=== PATIENT | female | born 1945 | race Caucasian/White ===

== ENCOUNTER 2017-06-29 09:27 | Day surgery (SDC) | payer MEDICARE, OTHER ==
[2017-06-28 15:17] LABS: BASOPHILS % (AUTO) 0.7 % (0-1); EOSINOPHILS # (AUTO) 0.2 X10'3 (0-0.9); EOSINOPHILS % (AUTO) 3.5 % (0-6); HEMATOCRIT 38.5 % (35.0-45.0); HEMOGLOBIN 13.1 g/dl (12.0-16.0); LYMPHOCYTES # (AUTO) 1.4 X10'3 (1.1-4.8); MEAN CORPUSCULAR HEMOGLOBIN 31.2 PG (27.0-31.0); MEAN CORPUSCULAR HGB CONC 34.2 % (33.0-36.5); MEAN CORPUSCULAR VOLUME 91.2 FL (78-98); MEAN PLATELET VOLUME 8.9 FL (7.4-10.4); MONOCYTES # (AUTO) 0.4 X10'3 (0-0.9); MONOCYTES % (AUTO) 7.4 % (2-12); NEUTROPHILS # (AUTO) 3.9 X10'3 (1.8-7.7); NEUTROPHILS % (AUTO) 64.4 % (42-75); PLATELET COUNT 190 X10'3 (140-440); RED BLOOD COUNT 4.22 X10'6 (4.20-5.60); RED CELL DISTRIBUTION WIDTH 14.3 % (11.5-14.5)
[2017-06-28 15:26] LABS: INR 1.1 INR; PARTIAL THROMBOPLASTIN TIME 27 SECONDS (22-32)
[2017-06-28 15:32] LABS: ALBUMIN 3.6 G/DL (3.4-5.0); ANION GAP 5 (8-16); BLOOD UREA NITROGEN 24 MG/DL (7-18); CALCIUM 8.6 MG/DL (8.5-10.1); CHLORIDE 108 MMOL/L (99-107); GLUCOSE 105 MG/DL (70-104); POTASSIUM 3.9 MMOL/L (3.5-5.1); SODIUM 142 MMOL/L (135-145); TOTAL CARBON DIOXIDE 28.7 MMOL/L (24-32); eGFR 44 ML/MIN
[~2017-06-29] VITALS: Ht 160 cm; Wt 119.7 kg
[2017-06-29] VITALS (10 sets, daily range): BP systolic 121–152; BP diastolic 44–97
[~2017-06-29 09:27] MED LIST: ALT5C PO; ATOR10TA87 PO; Asprin PO; CLOP75TA35 PO; DET2LAC PO; HYDR12.522 PO; LEVO125T69 PO; METO100T7 PO; POTA20TA19 PO; ZET10T PO
[2017-06-29] MEDS ORDERED: cefazolin 1gm/NS 100mL 100 ML IV ONE ×2 (09:51→12:58)
[2017-06-29] MEDS ORDERED: normal saline 1000ml 1,000 ML IV SCH ×2 (09:55→16:02)
[2017-06-29] MEDS ORDERED: EZET10TA13 PO (10:43)
[2017-06-29] MEDS ORDERED: METO50TA7 PO (10:43)
[2017-06-29] MEDS ORDERED: CLOP75TA15 PO (10:43)
[2017-06-29] MEDS ORDERED: AMIO200T57 PO (10:43)
[2017-06-29] MEDS ORDERED: FURO-150 PO (10:43)
[2017-06-29] MEDS ORDERED: SYN0.112T PO (10:43)
[2017-06-29] MEDS ORDERED: ALT5C PO (10:43)
[2017-06-29] MEDS ORDERED: NITR0.4T SL (10:43)
[2017-06-29] MEDS ORDERED: APIX5TAB3 PO (10:43)
[2017-06-29] MEDS ORDERED: IBUP-1984 PO (10:44)
[2017-06-29] MEDS ORDERED: pneumococcal 23-VAL P-sac vacc 25 mcg/0.5ml vial IMVAC ONE (12:51)
[2017-06-29] MEDS ORDERED: ceFAZolin 1000mg inj ONE (12:58)
[2017-06-29] MEDS ORDERED: LIDOcaine 1.5% w/epinephrine 1:200,000 5ml ampul ONE (12:58)
[2017-06-29] MEDS ORDERED: midazolam 2 mg/2 ml injection ONE ×3 (13:28→14:25)
[2017-06-29] MEDS ORDERED: fentaNYL/PF 50MCG/1 ML 2ML syringe ONE ×2 (13:28→14:25)
[2017-06-29] MEDS ORDERED: iohexol 350 MG/ML 50ML vial IV ONE (13:57)
[2017-06-30] MEDS ORDERED: cefazolin 1gm/NS 100mL 100 ML IV SCH
== END 2017-06-29 19:15 | disposition home or self-care (01) ==
LOC: SSTAY O 09:27
PROVIDERS: ATTEND Internal Medicine Cardiovascular Disease
DX: I48.0 Paroxysmal atrial fibrillation (principal); I49.5 Sick sinus syndrome; E78.5 Hyperlipidemia, unspecified; I10 Essential (primary) hypertension; I25.10 Atherosclerotic heart disease of native coronary artery without angina pectoris; Z78.0 Asymptomatic menopausal state; Z95.0 Presence of cardiac pacemaker; Z95.1 Presence of aortocoronary bypass graft; G47.33 Obstructive sleep apnea (adult) (pediatric); Z79.01 Long term (current) use of anticoagulants; I25.2 Old myocardial infarction; Z90.49 Acquired absence of other specified parts of digestive tract; Z96.641 Presence of right artificial hip joint; Z72.89 Other problems related to lifestyle; Z95.5 Presence of coronary angioplasty implant and graft; I36.1 Nonrheumatic tricuspid (valve) insufficiency; Z23 Encounter for immunization; Z79.1 Long term (current) use of non-steroidal anti-inflammatories (NSAID); Z88.6 Allergy status to analgesic agent
CPT/HCPCS: 33208; 36415; 71046; 80048; 85025; 85610; 85730; 90732; 99152; 99153; A6449; C1785; C1894; C1898; J0690; J2250; J3010; J3490; J7030; A4620; Q9967

== ENCOUNTER 2018-12-04 12:28 | Outpatient (CLI) | payer MEDICARE, OTHER ==
[~2018-12-04 12:28] MED LIST changes: -ALT5C PO; +AMIO200T61 PO; +APIX5TAB3 PO; -Asprin PO; +CLOP75TA15 PO; -CLOP75TA35 PO; +FURO-150 PO; +IBUP-1984 PO; -LEVO125T69 PO; -METO100T7 PO; +METO50TA7 PO; +NITR0.4T SL; -POTA20TA19 PO; +RAMI5CAP65 PO; +SYN0.112T PO
[2018-12-04 13:11] LABS: TOTAL HEMOGLOBIN 14.9 G/dl (12.0-16.0)
[2018-12-04] MEDS ORDERED: albuterol 2.5 MG/3 ML nebule NEB ONE (13:25)
== END 2018-12-04 23:59 | disposition home or self-care (01) ==
LOC: RT 12:28
PROVIDERS: ATTEND Internal Medicine Cardiovascular Disease
DX: I51.7 Cardiomegaly (principal); J98.4 Other disorders of lung; Z79.899 Other long term (current) drug therapy; Z95.0 Presence of cardiac pacemaker
CPT/HCPCS: 71046; 85018; 94010; 94727; 94729

== ENCOUNTER 2019-12-17 12:33 | Outpatient (CLI) | payer MEDICARE, OTHER ==
[~2019-12-17] VITALS: Ht 157.5 cm; Wt 108.0 kg
[2019-12-17] MEDS ORDERED: albuterol 2.5 MG/3 ML nebule NEB ONE (13:20)
== END 2019-12-17 23:59 | disposition home or self-care (01) ==
LOC: RT 12:33
PROVIDERS: ATTEND Internal Medicine Cardiovascular Disease
DX: R94.2 Abnormal results of pulmonary function studies (principal); R06.02 Shortness of breath; Z79.899 Other long term (current) drug therapy
CPT/HCPCS: 94060; 94727; 94729; 94760

== ENCOUNTER 2020-08-02 13:27 | Outpatient (CLI) | payer MEDICARE, OTHER ==
[~2020-08-02 13:27] MED LIST changes: -AMIO200T61 PO; -FURO-150 PO; -IBUP-1984 PO; +IPRA3AMP9 NEB; +LEVO500T89 PO; +METO-539 PO; +PANT-47 PO
== END 2020-08-02 23:59 | disposition home or self-care (01) ==
LOC: RT 13:27
PROVIDERS: ATTEND Internal Medicine Pulmonary Disease
DX: J84.9 Interstitial pulmonary disease, unspecified (principal); G47.30 Sleep apnea, unspecified; I48.91 Unspecified atrial fibrillation; I10 Essential (primary) hypertension; Z79.899 Other long term (current) drug therapy
CPT/HCPCS: 94618

== ENCOUNTER 2020-10-13 07:13 | Outpatient (CLI) | payer MEDICARE, OTHER | END 2020-10-13 23:59 | disposition home or self-care (01) | LOC: RT 07:13 | PROVIDERS: ATTEND Internal Medicine | DX: R06.02 Shortness of breath (principal) | CPT/HCPCS: 94010; 94727; 94729 ==

== ENCOUNTER → 2021-05-26 | Outpatient (CLI) | payer MEDICARE, OTHER ==
[~2021-05-26] MED LIST changes: -LEVO500T89 PO; +LEVO500T90 PO
== END | disposition home or self-care (01) ==
LOC: CARD DIAG 12:40
PROVIDERS: ATTEND Internal Medicine Pulmonary Disease
DX: I08.1 Rheumatic disorders of both mitral and tricuspid valves (principal)
CPT/HCPCS: 93306

== ENCOUNTER 2024-05-27 11:27 | Outpatient (CLI) | payer MEDICARE, OTHER ==
[~2024-05-27 11:27] MED LIST changes: +EZET10TA7 PO; +LEVO-65 PO; -LEVO500T90 PO; -RAMI5CAP65 PO; +RAMI5CAP71 PO; -ZET10T PO
== END 2024-05-27 23:59 | disposition home or self-care (01) ==
LOC: RAD 11:27
PROVIDERS: ATTEND Internal Medicine Cardiovascular Disease
DX: I51.7 Cardiomegaly (principal); Z95.0 Presence of cardiac pacemaker
CPT/HCPCS: 71046

== ENCOUNTER 2025-04-10 10:09 | Day surgery (SDC) | payer MEDICARE, OTHER ==
[2025-04-09 14:30] LABS: MEAN PLATELET VOLUME 8.6 FL (7.4-10.4); RED CELL DISTRIBUTION WIDTH 17.5 % (11.5-14.5)
[2025-04-09 14:45] LABS: INR 1.1 INR
[2025-04-09 14:46] LABS: CREATININE 1.25 MG/DL (0.40-0.90); TOTAL CARBON DIOXIDE 28.5 MMOL/L (24-32); eGFR 41 ML/MIN
[2025-04-09 14:57] LABS: EOSINOPHILS % (MANUAL) 59.0 % (0-6); LYMPHOCYTES % (MANUAL) 11.0 % (21-51); MONOCYTES % (MANUAL) 8.0 % (2-12); NEUTROPHILS % (MANUAL) 22.0 % (42-75)
[2025-04-09 14:58] LABS: PLATELET ESTIMATE NORMAL
[~2025-04-10] VITALS: Ht 152.4 cm; Wt 96.8 kg
[~2025-04-10 10:09] MED LIST changes: -ATOR10TA87 PO; +CA C1TAB95 PO; +CHOL500050 PO; +ESCI-8 PO; -IPRA3AMP9 NEB; -LEVO-65 PO; +MELA5TAB12 PO; -METO-539 PO; -METO50TA7 PO; -PANT-47 PO; +RAMI10CA78 PO; -RAMI5CAP71 PO; +ROSU40TA89 PO; +SOTA80TA PO
[2025-04-10] MEDS ORDERED: normal saline 1000ml 1,000 ML IV SCH (10:30)
[2025-04-10] MEDS ORDERED: atropine 0.1mg/ml 10ml syringe IV ONE (10:30)
[2025-04-10] MEDS ORDERED: MIDAZolam 1mg/ml 10ml vial IV ONE (10:30)
[2025-04-10] MEDS ORDERED: morphine 10mg/ml inj. IV ONE (10:30)
[2025-04-10] MEDS ORDERED: amiodarone 150mg/dext, iso-os 100 ML IV ONE (10:30)
--- NOTE | 2025-04-10 10:43 | ELECTROCARDIOGRAPH REPORT ---
[facility] Test Date: 2025-04-10 Test Time: 10:40:03 Pat Name: OBDULIA MILLER Department: [facility] Patient ID: [facility]-[id number] Room: Gender: F Instrument Technician Helper: LUIS CARLOS : 1945 Requested By: LIN MARRERO Order Number: [id number] Reading MD: Measurements Intervals [place] Rate: 80 P: 0 NM: 181 QRS: -80 QRSD: 164 T: 99 QT: 479 QTc: 553 Interpretive Statements Ventricular-paced rhythm No further analysis attempted due to paced rhythm Please click the below link to view image of tracing.
[2025-04-10 10:45] VITALS: BP 132/72; PULSE 80; RESP 16; TEMP 97.9; O2SAT 97
[2025-04-10] MEDS: enoxaparin 100mg/ml syringe SUBCUT ONE (11:05)
[2025-04-10] MEDS ORDERED: fentaNYL/PF 50MCG/1 ML 2ML syringe ONE ×2 (11:46→11:48)
[2025-04-10] MEDS ORDERED: midazolam 1 mg/ML 2ml injection ONE (11:47)
[2025-04-10] MEDS ORDERED: atropine 0.1mg/ml 10ml syringe ONE (11:47)
[2025-04-10 12:45] VITALS: BP 143/79; PULSE 80; RESP 16; O2SAT 97
[2025-04-10 13:00] VITALS: BP 154/76; PULSE 80; RESP 16; O2SAT 97
--- NOTE | 2025-04-10 13:02 | ELECTROCARDIOGRAPH REPORT ---
[facility] Test Date: 2025-04-10 Test Time: 13:00:44 Pat Name: OBDULIA MILLER Department: [facility] Patient ID: [id number] Room: Gender: F Mitering Machine Operator: BHUPENDRA : 1945 Requested By: LIN MARRERO Order Number: [id number] Reading MD: Dr. KATLIN Marrero Measurements Intervals [place] Rate: 80 P: 0 VA: 151 QRS: -75 QRSD: 172 T: 109 QT: 481 QTc: 555 Interpretive Statements A-V dual-paced rhythm with some inhibition No further analysis attempted due to paced rhythm Electronically Signed On 04-10-2025 16:35:[address] KATLIN Marrero Please click the below link to view image of tracing.
[2025-04-10 13:15] VITALS: BP 134/72; PULSE 80; RESP 16; O2SAT 97
[2025-04-10 13:30] VITALS: BP 135/72; PULSE 80; RESP 16; O2SAT 96
--- NOTE | 2025-04-22 13:51 | CARDIOLOGY REPORT ---
DATE OF SERVICE: 04/10/2025 DICTATING PHYSICIAN: KATLIN Anne MD [facility] PHYSICIAN: Dr. Michael Estrada. CARDIOLOGY: KATLIN Anne MD INDICATION: The patient is an 79-year-old postmenopausal female with a history of CAD, status post CABG x 4, history of PAF, sick sinus syndrome, status post PPM. The patient has been having persistent atrial fibrillation symptoms. After discussing risks, benefits, and alternative options the patient prefers to proceed with electrical cardioversion. Risks, benefits, and alternative options discussed. Informed consent obtained. PROCEDURES PERFORMED: * Electrical cardioversion. * Pacemaker checkup before and after. * Conscious sedation of 15 minutes. DESCRIPTION OF PROCEDURE: Anterior and posterior patch was used using biphasic electrical energy, 200 joules converted to AV paced rhythm, pacing rate increased to 80 per minute and will be dropped down to 70 per minute when she comes for followup. Pacemaker was interrogated before and after the cardioversion. IMPRESSION: 79-year-old female with atrial fibrillation underwent successful electrical cardioversion With 200 joule biphasic electrical energy to normal AV paced rhythm. I recommend diet, weight loss, and exercise program and continue medical therapy. KATLIN Anne MD TID: [id number] RECEIPT: [id number] /[facility] cc: Michael Estrada MD, KATLIN Anne MD(User) [facility]
== END 2025-04-10 13:05 | disposition short-term general hospital (02) ==
LOC: SSTAY O 10:09
PROVIDERS: ATTEND Internal Medicine Cardiovascular Disease
DX: I48.19 Other persistent atrial fibrillation (principal); I25.10 Atherosclerotic heart disease of native coronary artery without angina pectoris; I10 Essential (primary) hypertension; I49.5 Sick sinus syndrome; Z79.899 Other long term (current) drug therapy; Z79.01 Long term (current) use of anticoagulants; Z95.0 Presence of cardiac pacemaker; Z95.1 Presence of aortocoronary bypass graft; Z98.890 Other specified postprocedural states; Z96.641 Presence of right artificial hip joint; Z96.652 Presence of left artificial knee joint; Z82.49 Family history of ischemic heart disease and other diseases of the circulatory system
CPT/HCPCS: 36415; 80048; 85025; 85610; 92960; 93005; 99152; J1200; J1650; J2250; J3010; J7030; 85007; J0461